=== PATIENT | male | born 1970 | race Caucasian/White ===

== ENCOUNTER → 2021-09-02 12:51 | Outpatient (CLI) | payer OTHER, SELFPAY ==
--- NOTE | 2021-09-02 12:59 | ECHOD_ITS ---
Reason For Study: Murmur Procedure This was a 2D Doppler, Color Flow transthoracic echocardiogram. Technically difficult study due to patients body habitus. IV attempted twice without success. Patient would not allow anymore attempts. Unable to utilize Definity. Exam performed in department. Left Ventricle Normal LV size. Left ventricular systolic function is normal. The estimated ejection fraction is 55 %. No regional wall motion abnormalities noted. Right Ventricle Normal RV size. Normal systolic function. Atria Normal left atrium. Normal right atrium. Mitral Valve Normal mitral valve. Great Vessels Normal aortic root. Pericardium/Pleural No pericardial effusion. MMode/2D Measurements & Calculations LVIDd: 5.0 cm IVSd: 1.2 cm Ao root diam: 3.4 cm LVIDs: 3.5 cm LVPWd: 0.96 cm LA dimension: 4.4 cm FS: 30.7 % LAV(MOD-bp): 31.8 ml LA A4 area: 16.2 cm2 LAV(MOD-bp) Indexed: 13.1 ml/m2 LAV(MOD-sp2): 24.6 ml LAV(MOD-sp4): 41.6 ml Time Measurements MV dec time: 0.23 sec Doppler Measurements & Calculations MV E max jamari: 126.5 cm/sec Lat Peak E' Jamari: 8.3 cm/sec Med Peak E' Jamari: 7.2 cm/sec MV A max jamari: 107.3 cm/sec E/E' lat: 15.3 E/E' med: 17.5 MV E/A: 1.2 MV V2 max: 132.9 cm/sec MV P1/2t max jamari: 134.8 cm/sec Ao V2 max: 137.5 cm/sec MV max P.1 mmHg MV P1/2t: 62.5 msec Ao max P.6 mmHg MV V2 mean: 87.6 cm/sec MV dec slope: 632.0 cm/sec2 MV mean P.5 mmHg MV V2 VTI: 31.9 cm MVA(P1/2t): 3.5 cm2 LV V1 max: 104.7 cm/sec PA V2 max: 79.9 cm/sec LV V1 max P.4 mmHg ECHO/Echo Complete Interpretation Summary Normal LV size. Left ventricular systolic function is normal. The estimated ejection fraction is 55 %. The study was technically limited. The study was technically difficult. Ordering Physician: Juan Haile Referring Physician: Juan Haile Performed By: Jose Tobias RCS
== END ==
PROVIDERS: PCP Family Medicine; Referring Provider Family Medicine; Visit Provider Family Medicine
DX: I35.8 Other nonrheumatic aortic valve disorders (principal)
CPT/HCPCS: 93306; Q9957; A4216; J3490